=== PATIENT | female | born 1945 | race Caucasian/White ===

== ENCOUNTER 2017-05-26 13:08 | Inpatient (IN) | payer OTHER ==
[2017-05-26] MEDS: SOD CHLORIDE 0.9% 500 ML IV (14:18)
[2017-05-26 14:22] LABS: ADD MAN DIFF? NO
[2017-05-26 14:27] LABS: BASOPHIL # 0.1 10^3/ul (0.0-0.1); BASOPHILS % 0.5 % (0.0-2.0); EOSINOPHILS # 0.2 10^3/ul (0.0-0.5); EOSINOPHILS % 1.7 % (0.0-7.0); HEMATOCRIT 36.4 % (37.0-47.0); HEMOGLOBIN 12.4 g/dl (12.0-16.0); LYMPHOCYTES # 1.3 10^3/ul (0.8-2.9); LYMPHOCYTES % 10.4 % (15.0-51.0); MEAN CORPUSCULAR HEMOGLOBIN 31.6 pg (29.0-33.0); MEAN CORPUSCULAR HGB CONC 34.1 g/dl (32.0-37.0); MEAN CORPUSCULAR VOLUME 92.9 fl (82.0-101.0); MEAN PLATELET VOLUME 9.6 fl (7.4-10.4); MONOCYTE # 0.9 10^3/ul (0.3-0.9); MONOCYTES % 7.7 % (0.0-11.0); NEUTROPHIL # 9.4 10^3/ul (1.6-7.5); NEUTROPHILS % 78.5 % (39.0-77.0); PLATELET COUNT 371 10^3/UL (140-415); RED BLOOD COUNT 3.92 10^6/ul (4.20-5.40); RED CELL DISTRIBUTION WIDTH 13.4 % (11.5-14.5)
[2017-05-26 14:38] LABS: INR 0.93; PROTIME 12.5 Sec (11.9-14.9)
[2017-05-26 14:39] LABS: PARTIAL THROMBOPLASTIN TIME 28.2 Sec (25.0-35.0)
[2017-05-26 14:48] LABS: ANION GAP 16 (8-16); BLOOD UREA NITROGEN 20 mg/dl (7-20); CALCIUM 9.7 mg/dl (8.4-10.2); CARBON DIOXIDE 24 mmol/L (21-31); CHLORIDE 98 mmol/L (97-110); CREATININE 0.88 mg/dl (0.44-1.00); GLUCOSE 111 mg/dl (70-220); POTASSIUM 3.9 mmol/L (3.5-5.1); SODIUM 134 mmol/L (135-144)
[2017-05-26 14:58] LABS: TROPONIN-I < 0.012 ng/ml (0.00-0.12)
[2017-05-26] MEDS: SOD CHLORIDE 0.9% 100 ML (16:03)
[2017-05-26] MEDS: IOHEXOL 100 ML (16:04)
[2017-05-26] MEDS: IOHEXOL 350MG/ML 50 ML BTL (16:05)
[2017-05-26] MEDS: HYDROmorphONE 1 MG/ML SYG IV (17:05)
[2017-05-26] MEDS: ONDANSETRON 4 MG INJ IV (17:05)
[2017-05-26] MEDS: ENOXAPARIN 100 MG/ML SYG SC (17:06)
[2017-05-26] MEDS ORDERED: ONDANSETRON 4 MG INJ IV (18:00)
[2017-05-26] MEDS ORDERED: ACETAMINOPHEN 325 MG TAB PO (18:00)
[2017-05-26] MEDS ORDERED: MAGNESIUM HYDROXIDE 30ML CUP PO (23:00)
[2017-05-26] MEDS ORDERED: BISACODYL 10 MG SUPP PR (23:00)
[2017-05-27 06:35] LABS: ADD MAN DIFF? NO
[2017-05-27 06:42] LABS: BASOPHIL # 0.1 10^3/ul (0.0-0.1); BASOPHILS % 0.6 % (0.0-2.0); EOSINOPHILS # 0.3 10^3/ul (0.0-0.5); EOSINOPHILS % 3.2 % (0.0-7.0); HEMATOCRIT 33.8 % (37.0-47.0); HEMOGLOBIN 11.5 g/dl (12.0-16.0); LYMPHOCYTES # 1.3 10^3/ul (0.8-2.9); LYMPHOCYTES % 14.8 % (15.0-51.0); MEAN CORPUSCULAR HEMOGLOBIN 31.7 pg (29.0-33.0); MEAN CORPUSCULAR VOLUME 93.1 fl (82.0-101.0); MEAN PLATELET VOLUME 9.7 fl (7.4-10.4); MONOCYTE # 0.9 10^3/ul (0.3-0.9); MONOCYTES % 9.8 % (0.0-11.0); NEUTROPHIL # 6.3 10^3/ul (1.6-7.5); NEUTROPHILS % 70.8 % (39.0-77.0); PLATELET COUNT 295 10^3/UL (140-415); RED BLOOD COUNT 3.63 10^6/ul (4.20-5.40); RED CELL DISTRIBUTION WIDTH 13.5 % (11.5-14.5)
[2017-05-27 06:42] LABS: WHITE BLOOD COUNT 8.8 10^3/ul (4.8-10.8)
[2017-05-27 07:20] LABS: ALANINE AMINOTRANSFERASE 47 IU/L (13-69); ALBUMIN 3.5 g/dl (3.3-4.9); ALKALINE PHOSPHATASE 160 IU/L (42-121); ANION GAP 13 (8-16); ASPARTATE AMINO TRANSFERASE 21 IU/L (15-46); BILIRUBIN,INDIRECT 0.3 mg/dl (0-1.1); BILIRUBIN,TOTAL 0.3 mg/dl (0.2-1.3); BLOOD UREA NITROGEN 19 mg/dl (7-20); CALCIUM 9.5 mg/dl (8.4-10.2); CARBON DIOXIDE 24 mmol/L (21-31); CHLORIDE 103 mmol/L (97-110); CREATININE 0.84 mg/dl (0.44-1.00); GLUCOSE 99 mg/dl (70-220); POTASSIUM 3.6 mmol/L (3.5-5.1); SODIUM 136 mmol/L (135-144); TOTAL PROTEIN 6.4 g/dl (6.1-8.1)
[2017-05-27] MEDS: FOLIC ACID 1 MG TAB PO (09:21)
[2017-05-27] MEDS: FERROUS SULFATE (EC) 325 MG TAB PO ×2 (09:21→21:39)
[2017-05-27] MEDS: CALCIUM/VITAMIN D (500/200) TAB PO (09:21)
[2017-05-27] MEDS: LISINOPRIL 20 MG TAB PO (09:22)
[2017-05-27] MEDS: predniSONE 2.5 MG TAB PO (09:22)
[2017-05-27] MEDS: PANTOPRAZOLE (EC) 40 MG TAB PO (09:23)
[2017-05-27] MEDS: HYDROCODONE/APAP (5/325) TAB PO ×3 (09:28→21:39)
[2017-05-27] MEDS ORDERED: ENOXAPARIN 100 MG/ML SYG SC (10:30)
[2017-05-27] MEDS: ENOXAPARIN 100 MG/ML SYG SC ×2 (10:47→22:39)
[2017-05-27] MEDS: SENNA TAB PO (21:39)
[2017-05-27] MEDS: ATORVASTATIN 20 MG TAB PO (21:39)
[2017-05-28] MEDS: HYDROCODONE/APAP (5/325) TAB PO ×3 (03:30→20:43)
[2017-05-28 04:02] LABS: PROTEIN, TOTAL 6.7 g/dL (6.1-8.1)
[2017-05-28] MEDS: predniSONE 2.5 MG TAB PO (13:02)
[2017-05-28] MEDS: LISINOPRIL 20 MG TAB PO (13:02)
[2017-05-28] MEDS: FOLIC ACID 1 MG TAB PO (13:02)
[2017-05-28] MEDS: FERROUS SULFATE (EC) 325 MG TAB PO ×2 (13:03→20:42)
[2017-05-28] MEDS: CALCIUM/VITAMIN D (500/200) TAB PO (13:03)
[2017-05-28] MEDS: PANTOPRAZOLE (EC) 40 MG TAB PO (13:03)
[2017-05-28] MEDS: ENOXAPARIN 100 MG/ML SYG SC ×2 (13:06→20:42)
[2017-05-28 13:15] LABS: IMMUNOGLOBULIN G 868 mg/dl (700-1600); IMMUNOGLOBULIN M 82 mg/dl (40-230)
[2017-05-28 13:17] LABS: IMMUNOGLOBULIN A 263 mg/dl (70-400)
[2017-05-28] MEDS: ATORVASTATIN 20 MG TAB PO (20:42)
[2017-05-28] MEDS: SENNA TAB PO (20:42)
[2017-05-28 22:32] LABS: ALBUMIN 3.6 g/dL (3.8-4.8); ALPHA-1-GLOBULINS 0.5 g/dL (0.2-0.3); ALPHA-2-GLOBULINS 0.8 g/dL (0.5-0.9); BETA 2 GLOBULINS 0.4 g/dL (0.2-0.5); BETA GLOBULINS 0.4 g/dL (0.4-0.6); GAMMA GLOBULINS 0.9 g/dL (0.8-1.7)
[2017-05-29] MEDS: DIPHENHYDRAMINE 25 MG CAP PO (00:51)
[2017-05-29] MEDS: HYDROCODONE/APAP (5/325) TAB PO ×3 (05:53→19:41)
[2017-05-29 05:55] LABS: ADD MAN DIFF? NO
[2017-05-29 06:03] LABS: BASOPHIL # 0.1 10^3/ul (0.0-0.1); BASOPHILS % 0.7 % (0.0-2.0); EOSINOPHILS # 0.4 10^3/ul (0.0-0.5); EOSINOPHILS % 5.2 % (0.0-7.0); HEMATOCRIT 36.9 % (37.0-47.0); HEMOGLOBIN 12.2 g/dl (12.0-16.0); LYMPHOCYTES # 1.7 10^3/ul (0.8-2.9); LYMPHOCYTES % 22.7 % (15.0-51.0); MEAN CORPUSCULAR HEMOGLOBIN 30.7 pg (29.0-33.0); MEAN CORPUSCULAR HGB CONC 33.1 g/dl (32.0-37.0); MEAN CORPUSCULAR VOLUME 92.7 fl (82.0-101.0); MEAN PLATELET VOLUME 9.5 fl (7.4-10.4); MONOCYTE # 0.7 10^3/ul (0.3-0.9); MONOCYTES % 9.6 % (0.0-11.0); NEUTROPHIL # 4.5 10^3/ul (1.6-7.5); NEUTROPHILS % 60.9 % (39.0-77.0); PLATELET COUNT 266 10^3/UL (140-415); RED BLOOD COUNT 3.98 10^6/ul (4.20-5.40); RED CELL DISTRIBUTION WIDTH 13.5 % (11.5-14.5)
[2017-05-29 06:03] LABS: WHITE BLOOD COUNT 7.4 10^3/ul (4.8-10.8)
[2017-05-29 06:27] LABS: ANION GAP 15 (8-16); BLOOD UREA NITROGEN 18 mg/dl (7-20); CALCIUM 9.8 mg/dl (8.4-10.2); CARBON DIOXIDE 27 mmol/L (21-31); CHLORIDE 100 mmol/L (97-110); CREATININE 0.89 mg/dl (0.44-1.00); GLUCOSE 96 mg/dl (70-220); SODIUM 138 mmol/L (135-144)
[2017-05-29] MEDS: FOLIC ACID 1 MG TAB PO (09:13)
[2017-05-29] MEDS: PANTOPRAZOLE (EC) 40 MG TAB PO (09:13)
[2017-05-29] MEDS: predniSONE 2.5 MG TAB PO (09:13)
[2017-05-29] MEDS: LISINOPRIL 20 MG TAB PO (09:13)
[2017-05-29] MEDS: CALCIUM/VITAMIN D (500/200) TAB PO (09:13)
[2017-05-29] MEDS: FERROUS SULFATE (EC) 325 MG TAB PO ×2 (09:13→21:51)
[2017-05-29] MEDS: ENOXAPARIN 100 MG/ML SYG SC ×2 (09:14→21:52)
[2017-05-29] MEDS: SENNA TAB PO (21:51)
[2017-05-29] MEDS: ATORVASTATIN 20 MG TAB PO (21:51)
[2017-05-30] MEDS: LORAZEPAM 0.5 MG TAB PO ×2 (00:54→13:14)
[2017-05-30] MEDS: HYDROCODONE/APAP (5/325) TAB PO ×3 (06:05→22:46)
[2017-05-30 06:06] LABS: ADD MAN DIFF? NO
[2017-05-30 06:16] LABS: BASOPHILS % 0.5 % (0.0-2.0); EOSINOPHILS # 0.4 10^3/ul (0.0-0.5); EOSINOPHILS % 4.2 % (0.0-7.0); HEMATOCRIT 38.1 % (37.0-47.0); HEMOGLOBIN 12.7 g/dl (12.0-16.0); LYMPHOCYTES # 2.1 10^3/ul (0.8-2.9); LYMPHOCYTES % 25.8 % (15.0-51.0); MEAN CORPUSCULAR HEMOGLOBIN 31.1 pg (29.0-33.0); MEAN CORPUSCULAR HGB CONC 33.3 g/dl (32.0-37.0); MEAN CORPUSCULAR VOLUME 93.2 fl (82.0-101.0); MEAN PLATELET VOLUME 9.9 fl (7.4-10.4); MONOCYTE # 0.7 10^3/ul (0.3-0.9); MONOCYTES % 8.3 % (0.0-11.0); NEUTROPHILS % 60.4 % (39.0-77.0); PLATELET COUNT 281 10^3/UL (140-415); RED BLOOD COUNT 4.09 10^6/ul (4.20-5.40); RED CELL DISTRIBUTION WIDTH 13.5 % (11.5-14.5)
[2017-05-30 06:16] LABS: WHITE BLOOD COUNT 8.3 10^3/ul (4.8-10.8)
[2017-05-30 06:42] LABS: ANION GAP 14 (8-16); BLOOD UREA NITROGEN 21 mg/dl (7-20); CALCIUM 10.1 mg/dl (8.4-10.2); CARBON DIOXIDE 28 mmol/L (21-31); CHLORIDE 97 mmol/L (97-110); CREATININE 0.87 mg/dl (0.44-1.00); GLUCOSE 96 mg/dl (70-220); SODIUM 135 mmol/L (135-144)
[2017-05-30] MEDS: FERROUS SULFATE (EC) 325 MG TAB PO ×2 (08:47→22:45)
[2017-05-30] MEDS: FOLIC ACID 1 MG TAB PO (08:47)
[2017-05-30] MEDS: LISINOPRIL 20 MG TAB PO (08:48)
[2017-05-30] MEDS: PANTOPRAZOLE (EC) 40 MG TAB PO (08:48)
[2017-05-30] MEDS: ENOXAPARIN 100 MG/ML SYG SC (08:49)
[2017-05-30] MEDS: CALCIUM/VITAMIN D (500/200) TAB PO (08:53)
[2017-05-30] MEDS: predniSONE 2.5 MG TAB PO (10:04)
[2017-05-30] MEDS: APIXABAN 5 MG TABLET PO (22:45)
[2017-05-30] MEDS: SENNA TAB PO (22:46)
[2017-05-30] MEDS: ATORVASTATIN 20 MG TAB PO (22:46)
[2017-05-31] MEDS: HYDROCODONE/APAP (5/325) TAB PO ×3 (06:16→18:47)
[2017-05-31] MEDS: CALCIUM/VITAMIN D (500/200) TAB PO (08:57)
[2017-05-31] MEDS: FOLIC ACID 1 MG TAB PO (08:57)
[2017-05-31] MEDS: APIXABAN 5 MG TABLET PO ×2 (08:57→21:11)
[2017-05-31] MEDS: FERROUS SULFATE (EC) 325 MG TAB PO ×2 (08:58→21:11)
[2017-05-31] MEDS: PANTOPRAZOLE (EC) 40 MG TAB PO (08:58)
[2017-05-31] MEDS: predniSONE 2.5 MG TAB PO (08:58)
[2017-05-31] MEDS: LISINOPRIL 20 MG TAB PO (09:00)
[2017-05-31 17:59] LABS: ADD UMIC YES; UR ASCORBIC ACID NEGATIVE (NEGATIVE); UR BACTERIA FEW /HPF (NONE SEEN); UR BILIRUBIN (Dip) NEGATIVE (NEGATIVE); UR BLOOD (Dip) 1+ mg/dL (NEGATIVE); UR CLARITY SLIGHTLY CLOUDY (CLEAR); UR COLOR YELLOW (YELLOW); UR GLUCOSE (Dip) NEGATIVE (NEGATIVE); UR KETONES (Dip) NEGATIVE (NEGATIVE); UR LEUKOCYTE ESTERASE (Dip) 3+ Leu/ul (NEGATIVE); UR NITRITE (Dip) NEGATIVE (NEGATIVE); UR RBC 2 /HPF (0-5); UR SPECIFIC GRAVITY (Dip) 1.004 (1.003-1.030); UR SQUAMOUS EPITHELIAL CELL FEW /HPF (FEW); UR TOTAL PROTEIN (Dip) NEGATIVE (NEGATIVE); UR UROBILINOGEN (Dip) NEGATIVE (NEGATIVE); UR WBC 49 /HPF (0-5)
[2017-05-31] MEDS: ATORVASTATIN 20 MG TAB PO (21:10)
[2017-05-31] MEDS: SENNA TAB PO (21:11)
[2017-05-31] MEDS: DIPHENHYDRAMINE 25 MG CAP PO (23:00)
[2017-06-01] MEDS: HYDROCODONE/APAP (5/325) TAB PO ×4 (03:18→21:08)
[2017-06-01] MEDS: FOLIC ACID 1 MG TAB PO (08:06)
[2017-06-01] MEDS: predniSONE 2.5 MG TAB PO (08:07)
[2017-06-01] MEDS: PANTOPRAZOLE (EC) 40 MG TAB PO (08:07)
[2017-06-01] MEDS: FERROUS SULFATE (EC) 325 MG TAB PO ×2 (08:07→21:29)
[2017-06-01] MEDS: CALCIUM/VITAMIN D (500/200) TAB PO (08:07)
[2017-06-01] MEDS: APIXABAN 5 MG TABLET PO ×2 (08:07→21:29)
[2017-06-01] MEDS: LISINOPRIL 20 MG TAB PO (09:00)
[2017-06-01] MEDS: DIPHENHYDRAMINE 25 MG CAP PO (18:15)
[2017-06-01] MEDS: ATORVASTATIN 20 MG TAB PO (21:29)
[2017-06-01] MEDS: SENNA TAB PO (21:29)
[2017-06-02] MEDS: LORAZEPAM 0.5 MG TAB PO (08:10)
[2017-06-02] MEDS: LISINOPRIL 20 MG TAB PO (09:00)
[2017-06-02] MEDS: PANTOPRAZOLE (EC) 40 MG TAB PO (09:46)
[2017-06-02] MEDS: FOLIC ACID 1 MG TAB PO (09:46)
[2017-06-02] MEDS: FERROUS SULFATE (EC) 325 MG TAB PO ×2 (09:46→20:56)
[2017-06-02] MEDS: predniSONE 2.5 MG TAB PO (09:46)
[2017-06-02] MEDS: CALCIUM/VITAMIN D (500/200) TAB PO (09:46)
[2017-06-02] MEDS: APIXABAN 5 MG TABLET PO ×2 (09:48→20:57)
[2017-06-02] MEDS: HYDROCODONE/APAP (5/325) TAB PO (14:36)
[2017-06-02] MEDS: DIPHENHYDRAMINE 25 MG CAP PO (17:32)
[2017-06-02] MEDS: ATORVASTATIN 20 MG TAB PO (20:56)
[2017-06-02] MEDS: SENNA TAB PO (20:56)
[2017-06-03] MEDS: ACETAMINOPHEN 325 MG TAB PO ×2 (02:30→14:48)
[2017-06-03] MEDS: FOLIC ACID 1 MG TAB PO (08:48)
[2017-06-03] MEDS: predniSONE 2.5 MG TAB PO (08:49)
[2017-06-03] MEDS: LISINOPRIL 20 MG TAB PO (08:49)
[2017-06-03] MEDS: FERROUS SULFATE (EC) 325 MG TAB PO ×2 (08:49→20:33)
[2017-06-03] MEDS: APIXABAN 5 MG TABLET PO ×2 (08:49→20:33)
[2017-06-03] MEDS: CALCIUM/VITAMIN D (500/200) TAB PO (08:49)
[2017-06-03] MEDS: PANTOPRAZOLE (EC) 40 MG TAB PO (08:49)
[2017-06-03] MEDS: LORAZEPAM 0.5 MG TAB PO (08:50)
[2017-06-03] MEDS: DOCUSATE SODIUM 100 MG CAP PO ×2 (08:56→20:33)
[2017-06-03] MEDS: HYDROCODONE/APAP (5/325) TAB PO ×3 (09:36→21:16)
[2017-06-03] MEDS: SENNA TAB PO (20:33)
[2017-06-03] MEDS: ATORVASTATIN 20 MG TAB PO (20:33)
[2017-06-04] MEDS: HYDROCODONE/APAP (5/325) TAB PO ×2 (05:24→10:55)
[2017-06-04] MEDS: DOCUSATE SODIUM 100 MG CAP PO (08:39)
[2017-06-04] MEDS: APIXABAN 5 MG TABLET PO (08:39)
[2017-06-04] MEDS: FOLIC ACID 1 MG TAB PO (08:40)
[2017-06-04] MEDS: CALCIUM/VITAMIN D (500/200) TAB PO (08:40)
[2017-06-04] MEDS: FERROUS SULFATE (EC) 325 MG TAB PO (08:40)
[2017-06-04] MEDS: PANTOPRAZOLE (EC) 40 MG TAB PO (08:40)
[2017-06-04] MEDS: LISINOPRIL 20 MG TAB PO (08:40)
[2017-06-04] MEDS: predniSONE 2.5 MG TAB PO (08:40)
[2017-06-04] MEDS: ACETAMINOPHEN 325 MG TAB PO (12:49)
[2017-06-07] MEDS ORDERED: APIXABAN 5 MG TABLET PO (09:00)
== END 2017-06-04 13:13 | DRG 299 ==
LOC: E/R 13:08 → PP2 17:45
PROVIDERS: Internal Medicine
DX: I82.412 Acute embolism and thrombosis of left femoral vein (principal); I26.99 Other pulmonary embolism without acute cor pulmonale; Z87.891 Personal history of nicotine dependence; I10 Essential (primary) hypertension; E78.5 Hyperlipidemia, unspecified; M06.9 Rheumatoid arthritis, unspecified; M89.9 Disorder of bone, unspecified
CPT/HCPCS: 36415; 71275; 73560; 76700; 78306; 80048; 80053; 81001; 82784; 84155; 84165; 84484; 85025; 85610; 85730; 86320; 87081; 87086; 93005; 93971; 96372; 97110; 97116; 97162; 97530; 99291-25; A9503